=== PATIENT | female | born 1985 | race Two or more races ===

== ENCOUNTER 2024-06-23 20:13 | Emergency (ER) | payer OTHER, SELFPAY ==
[2024-06-23 20:15] VITALS: BMI 29.2
--- NOTE | 2024-06-23 21:25 | PC.NURSE ---
called pt in er lobby and outside of er and no answer at this time.
--- NOTE | 2024-06-23 21:45 | PC.NURSE ---
called pt in er lobby and outside of er and no answer at this time.
--- NOTE | 2024-06-23 22:03 | PC.NURSE ---
called pt in er lobby and outside of er and no answer at this time.
== END 2024-06-23 22:05 | disposition left against medical advice (07) ==
PROVIDERS: Emergency Provider Emergency Medicine
DX: Z53.21 Procedure and treatment not carried out due to patient leaving prior to being seen by health care provider (principal)